=== PATIENT | male | born 1985 | race Caucasian/White ===

== ENCOUNTER → 2016-10-27 | Outpatient (CLI) | payer OTHER ==
[~2016-10-27] MED LIST: MECL1TAB42 PO
[2016-10-27 09:21] LABS: COLLECTION PROBLEM NO; DAYS OF ABSTINENCE 4; METHOD OF COLLECTION MASTURBATION; SEMEN COLOR GRAY OR GRAY-WHITE (GRY/GRYWHTE); SEMEN TIME OF COLLECTION 915; TRANSPORT PROBLEM NO; TYPE OF SPECIMEN CONTAINER STERILE CUP
[2016-10-27 09:35] LABS: SPERM VIABILITY STAIN NOT INDICATED % (>58%)
== END | disposition home or self-care (01) ==
LOC: C.LAB 09:12
PROVIDERS: ATTEND Obstetrics & Gynecology
DX: Z31.41 Encounter for fertility testing (principal)

== ENCOUNTER 2016-11-25 14:51 | Emergency (ER) | payer OTHER ==
[~2016-11-25] VITALS: Ht 190.5 cm; Wt 122.5 kg
[2016-11-25 15:09] VITALS: TEMP 36.4
[2016-11-25] MEDS ORDERED: MECLIZINE HCL 25 MG TAB PO STA (17:01)
[2016-11-25] MEDS ORDERED: SODIUM CHLORIDE 0.9% 1000ML 1,000 ML IV STA (17:01)
--- NOTE | 2016-11-25 17:21 | DIAGNOSTIC IMAGING REPORT ---
CHEST ONE VIEW PORTABLE CLINICAL HISTORY: Weakness COMPARISON STUDY: No previous studies for comparison. FINDINGS: The heart is at the upper limits of normal in size. There is no failure. There is no focal pulmonary consolidation. There are no pleural effusions.[ IMPRESSION: No active disease in the chest. Electronically signed by: Juan Ramon Garcia M.D. 11/25/2016 5:20 PM Dictated Date/Time: 11/25/2016 5:19 PM
[2016-11-25 17:40] LABS: BASO % 0.3 %; BASO ABS # 0.02 K/uL (0-0.2); COMPLETE YES; EOS % 2.4 %; HEMATOCRIT 43.6 % (42-52); IG% 0.1 %; LYMPH ABS # 1.82 K/uL (1.2-3.4); MEAN CELL VOLUME 87.7 fL (80-100); MEAN CORPUSCULAR HEMOGLOBIN 31.6 pg (25-34); MEAN PLATELET VOLUME 11.4 fL (7.4-10.4); MONO % 6.5 %; NEUT % 66.7 %; PLATELET COUNT 204 K/uL (130-400); RED BLOOD COUNT 4.97 M/uL (4.7-6.1); WHITE BLOOD COUNT 7.59 K/uL (4.8-10.8)
[2016-11-25 17:54] LABS: URINE APPEARANCE CLEAR (CLEAR); URINE BILIRUBIN NEG (NEG); URINE COLOR YELLOW; URINE NITRITE NEG (NEG); URINE PH 6.5 (4.5-7.5); UROBILINOGEN NEG (NEG)
[2016-11-25 17:56] LABS: ALT/SGPT 30 U/L (12-78); AST/SGOT 21 U/L (15-37); BLOOD UREA NITROGEN 13 mg/dl (7-18); BUN/CREATININE RATIO 12.8 (10-20); CALCIUM 8.7 mg/dl (8.5-10.1); CARBON DIOXIDE 28 mmol/L (21-32); CHLORIDE 106 mmol/L (98-107); GLUCOSE 91 mg/dl (70-99); POTASSIUM 3.7 mmol/L (3.5-5.1); SODIUM 142 mmol/L (136-145)
[2016-11-25 17:58] LABS: MANUAL MICROSCOPIC REQUIRED? NO; REVIEW REQ? NO
--- NOTE | 2016-11-25 18:04 | DIAGNOSTIC IMAGING REPORT ---
CT HEAD WITHOUT CONTRAST (CT) CLINICAL HISTORY: No onset weakness COMPARISON STUDY: No previous studies for comparison. TECHNIQUE: Axial CT of the brain is performed from the vertex to the skull base. IV contrast was not administered for this examination. CT DOSE: 537.48 mGy.cm FINDINGS: No intra or extra-axial mass lesions are visualized. There is no CT evidence of acute cortical infarction. There is no evidence of midline shift. There is no acute hemorrhage. No calvarial fractures are visualized. There is no evidence of pathologic ventricular dilatation. There is no evidence of acute sinusitis IMPRESSION: No acute intracranial findings Electronically signed by: Juan Ramon Garcia M.D. 11/25/2016 6:03 PM Dictated Date/Time: 11/25/2016 6:02 PM
[2016-11-25 18:07] LABS: ALKALINE PHOSPHATASE 92 U/L (45-117); THYROID STIMULATING HORMONE 0.883 uIu/ml (0.300-4.500)
[2016-11-25 18:25] VITALS: O2SAT 98
[2016-11-25 18:26] VITALS: Ht 190.5 cm; Wt 122.5 kg
[2016-11-25] MEDS ORDERED: MECL1TAB42 PO (18:58)
[2016-11-25 19:17] VITALS: BP 139/93; PULSE 59; O2SAT 100
--- NOTE | 2016-11-25 23:07 | EMERGENCY ROOM VISIT NOTE ---
History Report prepared by Jeffry: Salma Rea Under the Supervision of: Dr. Roberto Carlos Prado D.O. First contact with patient: 16:50 Chief Complaint: DIZZY Stated Complaint: DIZZINESS Nursing Triage Summary: Patient reports he was at a lunch meeting around 1345 and became dizzy and felt nauseated. States he also felt somewhat disoriented, states it did not last a very long time but when standing from the table he lost his balance, denies falling. Patient denies any pain or headache. Patient sent by urgent care History of Present Illness The patient is a 31 year old male who presents to the Emergency Room with complaints of resolved dizziness that started about 3 hours ago, around 1345. The dizziness lasted for a couple hours, but resolved upon arrival to the ED and the patient denies any dizziness now. Symptoms came on rapidly. Nothing seemed to make the dizziness better and it resolved on its own. He states that he still has a "fog in his head." The patient states that he was at an important lunch meeting for work and he was eating lunch when his symptoms started. He was talking to two of his colleagues when he realized that he was having a hard time focusing on them visually and on the conversation in general. After he noticed that he had trouble focusing, the room started spinning and his two colleagues started talking to one another so he "stared off into the distance." The patient regained visual focus as he stared off into the distance and the room stopped spinning. He got up to go the restroom and noticed that he was off balance, but he did not fall. As he was ambulating down the hallway, he felt like he was wobbling. He also experienced nausea with the dizziness. The patient texted his , but stayed for the remainder of the meeting. The patient's took him to Urgent Care and they recommended that he come into the ED for further evaluation. As stated, his symptoms resolved upon arrival to the ED. The dizziness resolved first and then the nausea resolved. He states that he has been eating and drinking normally and he did not drink any alcohol at lunch. The patient denies headaches, ear pain, ringing in ears, sinus congestion, rhinorrhea, cough, chest pain, shortness of breath, weakness or numbness in his arms or legs, vomiting, and diarrhea. The patient also denies any recent trauma along with starting any new medication recently. The patient's reports that the patient has a mass in the right lower quadrant of his abdomen. The mass does not cause him to experience any pain and he suspects that it is a hernia. Source of History: patient, spouse/significant other () Onset: about 3 hours ago, around 1345 Position: head Quality: other (dizziness) Timing: other (resolved) Modifying Factors (Relieving): other (None) Associated Symptoms: + nausea, No SOB, No chest pain, No cough, No diarrhea , No headache, No numbness, No vomiting, No weakness Note: no ear pain, no ringing in ears, no sinus congestion, no rhinorrhea Review of Systems See HPI for pertinent positives & negatives. A total of 10 systems reviewed and were otherwise negative. Past Medical & Surgical Medical Problems: (1) Asthma Family History Cancer Heart disease Hypertension Social History Smoking Status: Never Smoker Marital Status: Housing Status: lives with family Current/Historical Medications Scheduled PRN Meclizine Hcl (Meclizine Hcl), 1 TAB PO TID PRN for dizzy Allergies Coded Allergies: No Known Allergies (Unverified , 11/25/16) Physical Exam Vital Signs Date Time Temp Pulse Resp B/P Pulse Ox O2 Delivery O2 Flow Rate FiO2 11/25/16 19:17 59 20 139/93 100 11/25/16 18:40 58 11/25/16 18:25 98 Room Air 11/25/16 18:22 55 20 135/84 97 51 137/81 89 133/92 11/25/16 15:09 36.4 64 20 137/97 96 Room Air Physical Exam GENERAL: alert, sitting up in bed, well appearing, well nourished, no distress, non-toxic EYE EXAM: normal conjunctiva, PERRL and EOM's intact EARS: TMs clear bilaterally. OROPHARYNX: no exudate, no erythema, lips, buccal mucosa, and tongue normal and mucous membranes are moist NECK: supple, no nuchal rigidity, no adenopathy, non-tender LUNGS: Clear to auscultation. Normal chest wall mechanics HEART: no murmurs, S1 normal and S2 normal ABDOMEN: abdomen soft, non-tender, normo-active bowel sounds, above right ASIS small 1 cm focal mass which is nontender and non-reducible, no rebound or guarding. BACK: Back is symmetrical on inspection and there is no deformity, no midline tenderness, no CVA tenderness. SKIN: no rashes and no bruising UPPER EXTREMITIES: upper extremities are grossly normal. LOWER EXTREMITIES: No pitting edema. NEURO EXAM: Normal sensorium, cranial nerves II-XII intact, normal speech, no weakness of arms, no weakness of legs. No drift. Finger to nose intact. Gross sensation intact. Rapid alternating movements of upper extremities intact bilaterally. Medical Decision & Procedures ER Provider Diagnostic Interpretation: Xray results per the radiologist and my interpretation. Other results have been interpreted by the radiologist and reviewed by me. CHEST ONE VIEW PORTABLE IMPRESSION: No active disease in the chest. Electronically signed by: Juan Ramon Garcia M.D. 11/25/2016 5:20 PM Dictated Date/Time: 11/25/2016 5:[address] HEAD WITHOUT CONTRAST (CT) IMPRESSION: No acute intracranial findings Electronically signed by: Juan Ramon Garcia M.D. 11/25/2016 6:03 PM Dictated Date/Time: 11/25/2016 6:02 PM Laboratory Results 11/25/16 17:27 Red Blood Count 4.97, Mean Corpuscular Volume 87.7, Mean Corpuscular Hemoglobin 31.6, Mean Corpuscular Hemoglobin Concent 36.0, Mean Platelet Volume 11.4, Neutrophils (%) (Auto) 66.7, Lymphocytes (%) (Auto) 24.0, Monocytes (%) (Auto) 6.5, Eosinophils (%) (Auto) 2.4, Basophils (%) (Auto) 0.3, Neutrophils # (Auto) 5.07, Lymphocytes # (Auto) 1.82, Monocytes # (Auto) 0.49, Eosinophils # (Auto) 0.18, Basophils # (Auto) 0.02 11/25/16 17:27 Test 11/25/16 17:27 11/25/16 17:30 White Blood Count 7.59 K/uL (4.8-10.8) Red Blood Count 4.97 M/uL (4.7-6.1) Hemoglobin 15.7 g/dL (14.0-18.0) Hematocrit 43.6 % (42-52) Mean Corpuscular Volume 87.7 fL (80-100) Mean Corpuscular Hemoglobin 31.6 pg (25-34) Mean Corpuscular Hemoglobin Concent 36.0 g/dl (32-36) Platelet Count 204 K/uL (130-400) Mean Platelet Volume 11.4 fL (7.4-10.4) Neutrophils (%) (Auto) 66.7 % Lymphocytes (%) (Auto) 24.0 % Monocytes (%) (Auto) 6.5 % Eosinophils (%) (Auto) 2.4 % Basophils (%) (Auto) 0.3 % Neutrophils # (Auto) 5.07 K/uL (1.4-6.5) Lymphocytes # (Auto) 1.82 K/uL (1.2-3.4) Monocytes # (Auto) 0.49 K/uL (0.11-0.59) Eosinophils # (Auto) 0.18 K/uL (0-0.5) Basophils # (Auto) 0.02 K/uL (0-0.2) RDW Standard Deviation 38.6 fL (36.4-46.3) RDW Coefficient of Variation 12.2 % (11.5-14.5) Immature Granulocyte % (Auto) 0.1 % Immature Granulocyte # (Auto) 0.01 K/uL (0.00-0.02) Anion Gap 8.0 mmol/L (3-11) Est Creatinine Clear Calc Drug Dose 152.7 ml/min Estimated GFR () 116.5 Estimated GFR (Non- 100.6 BUN/Creatinine Ratio 12.8 (10-20) Calcium Level 8.7 mg/dl (8.5-10.1) Total Bilirubin 0.5 mg/dl (0.2-1) Direct Bilirubin < 0.1 mg/dl (0-0.2) Aspartate Amino Transf (AST/SGOT) 21 U/L (15-37) Alanine Aminotransferase (ALT/SGPT) 30 U/L (12-78) Alkaline Phosphatase 92 U/L (45-117) Troponin I < 0.015 ng/ml (0-0.045) Total Protein 7.7 gm/dl (6.4-8.2) Albumin 4.2 gm/dl (3.4-5.0) Thyroid Stimulating Hormone (TSH) 0.883 uIu/ml (0.300-4.500) Urine Color YELLOW Urine Appearance CLEAR (CLEAR) Urine pH 6.5 (4.5-7.5) Urine Specific [place] 1.010 (1.000-1.030) Urine Protein NEG (NEG) Urine Glucose (UA) NEG (NEG) Urine Ketones NEG (NEG) Urine Occult Blood NEG (NEG) Urine Nitrite NEG (NEG) Urine Bilirubin NEG (NEG) Urine Urobilinogen NEG (NEG) Urine Leukocyte Esterase NEG (NEG) Laboratory results per my review. Medications Administered Medications (Trade) Dose Ordered Sig/Miranda Route Start Time Stop Time Status Last Admin Dose Admin Sodium Chloride (Nss 1000ml) 1,000 ml @ 999 mls/hr Q1H1M STAT IV 11/25/16 17:01 11/25/16 18:01 DC 11/25/16 18:20 999 MLS/HR Meclizine HCl (Antivert Tab) 25 mg NOW STAT PO 11/25/16 17:01 11/25/16 17:02 DC 11/25/16 18:20 25 MG ECG Indication: nausea Rate (beats per minute): 51 Rhythm: sinus bradycardia Findings: no ectopy, other (normal axis) ED Course ED COURSE: Vital signs were reviewed and showed normal. The patients medical record was reviewed The above diagnostic studies were performed and reviewed. ED treatments and interventions as stated above. 1653: The patient was evaluated in room C5. A complete history and physical examination was performed. 1701: Ordered Meclizine HCl 25 mg PO, Sodium Chloride 1000 ml @ 999 mls/hr IV 1856: Upon reevaluation, the patient is doing well. He was able to ambulate throughout the room without difficulty. He has absolutely no complaints at this time and he is back at his baseline. I discussed my findings with the patient and he understands and agrees with the treatment plan. Based on the patients age, coexisting illnesses, exam and lab findings the decision to treat as an outpatient was made. The patient remained stable while under my care. The patient appeared well at the time of discharge. Medical Decision Differential diagnosis includes etiologies such as benign positional vertigo, dehydration, hypovolemia, anemia, tumor, infection, hypoglycemia, electrolyte abnormalities, cardiac sources, intracerebral event, toxicologic, neurologic, as well as others were entertained. Patient is a 31-year-old male who presents the ER for dizziness which started around 12:00 today. It came on rapidly resolves upon presentation. Patient is completely neurologically intact. No cerebellar symptoms. Vitals are unremarkable. CT head was negative. Able to ambulate without difficulty. CBC along with BMP, LFTs and bilirubin are unremarkable. UA was negative. Chest x- ray was unremarkable. EKG was unremarkable. Patient was given fluids and Antivert. There is no signs of infection. He was updated at bedside. I do believe this to be peripheral vertigo. He has no risk factors for ischemia. He no past medical history. He was discharged follow-up with his primary care doctor at his baseline. Discussed with Pt concerning signs and symptoms to watch out for. Pt was instructed to follow up with their PCP and discussed with the patient their option to return to the ED at anytime for persistent or worsening symptoms. The appropriate anticipatory guidance and out-patient management, including indications for return to the emergency department, were explained at length to the patient and understood. Impression Primary Impression: Vertigo Scribe Attestation The scribe's documentation has been prepared under my direction and personally reviewed by me in its entirety. I confirm that the note above accurately reflects all work, treatment, procedures, and medical decision making performed by me. Departure Information Dispostion Home / Self-Care Prescriptions Meclizine Hcl (MECLIZINE HCL) 25 Mg Tab 1 TAB PO TID Y for dizzy for 10 Days, #30 TAB Prov: Roberto Carlos Prado, 11/25/16 Referrals No Doctor, Assigned (PCP) Forms HOME CARE DOCUMENTATION FORM, IMPORTANT VISIT INFORMATION Patient Instructions ED Vertigo Unspecified, My [facility] Additional Instructions Please follow up with your primary care doctor with in the next 24 hours. Any worsening of your symptoms, please return to the ED immediately. This includes weakness or numbness in arms legs, change in vision, trouble walking, fevers greater than 100.4, or any other concerning signs or symptoms from your standpoint.
== END 2016-11-25 19:19 | disposition home or self-care (01) ==
LOC: C.EDB 14:52 → C.EDC 19:19
DX: R42 Dizziness and giddiness (principal); J45.909 Unspecified asthma, uncomplicated

== ENCOUNTER → 2017-08-20 | Outpatient (CLI) | payer OTHER ==
[2017-08-20 13:02] LABS: ESTIMATED AVERAGE GLUCOSE 97 mg/dl; HA1C FLAG Normal (Normal)
[2017-08-20 13:07] LABS: ALT/SGPT 43 U/L (12-78); AST/SGOT 22 U/L (15-37); BLOOD UREA NITROGEN 16 mg/dl (7-18); BUN/CREATININE RATIO 18.5 (10-20); CALCIUM 9.2 mg/dl (8.5-10.1); CARBON DIOXIDE 30 mmol/L (21-32); CHLORIDE 104 mmol/L (98-107); CREATININE 0.89 mg/dl (0.60-1.40); GLUCOSE 84 mg/dl (70-99); POTASSIUM 3.8 mmol/L (3.5-5.1); SODIUM 136 mmol/L (136-145)
[2017-08-20 13:18] LABS: ALB/GLOB RATIO 1.1 (0.9-2); ALKALINE PHOSPHATASE 71 U/L (45-117); CHOLESTEROL 143 mg/dl (0-200); CHOLESTEROL/HDL RATIO 3.7; HDL CHOLESTEROL 39 mg/dl; LDL CHOLESTEROL CALCULATED 80 mg/dl; TRIGLYCERIDES 120 mg/dl (0-150); VERY LOW DENSITY LIPOPROT CALC 24 mg/dl
== END | disposition home or self-care (01) ==
LOC: C.LABBC 11:02
PROVIDERS: ATTEND Neuromusculoskeletal Medicine & OMM
DX: Z00.00 Encounter for general adult medical examination without abnormal findings (principal); Z13.1 Encounter for screening for diabetes mellitus; Z13.220 Encounter for screening for lipoid disorders; E66.9 Obesity, unspecified; R03.0 Elevated blood-pressure reading, without diagnosis of hypertension